=== PATIENT | male | born 1970 | race Caucasian/White ===

== ENCOUNTER 2017-08-24 14:49 | Emergency (ER) | payer MEDICAID ==
[~2017-08-24 14:49] MED LIST: CITA20TA11 PO; CLIN-15 PO; CLIN-80 PO; GABA300C PO; IBUP-1985 PO; IND25C PO; QUET-1 PO; TEG100T PO; TRAM50TA2 PO; VITA1CAP62 PO
== END 2017-08-24 16:10 | disposition left against medical advice (07) ==
LOC: ER 14:50
DX: F41.9 Anxiety disorder, unspecified (principal); Z53.21 Procedure and treatment not carried out due to patient leaving prior to being seen by health care provider

== ENCOUNTER 2018-02-27 07:03 | Emergency (ER) | payer MEDICAID ==
[~2018-02-27] VITALS: Ht 175.3 cm; Wt 77.3 kg
[~2018-02-27 07:03] MED LIST changes: +CITA-278 PO; -CITA20TA11 PO; -CLIN-80 PO; +CLIN300C85 PO
[2018-02-27] MEDS ORDERED: normal saline 1000ML IV soln IVB ONE (07:25)
[2018-02-27 08:12] LABS: BASOPHILS # (AUTO) 0.1 X10'3 (0-0.2); BASOPHILS % (AUTO) 0.9 % (0-1); EOSINOPHILS # (AUTO) 0.1 X10'3 (0-0.9); EOSINOPHILS % (AUTO) 1.3 % (0-6); HEMATOCRIT 43.8 % (42.0-52.0); LYMPHOCYTES # (AUTO) 1.3 X10'3 (1.1-4.8); LYMPHOCYTES % (AUTO) 17.7 % (21-51); MEAN CORPUSCULAR HEMOGLOBIN 34.6 PG (27.0-31.0); MEAN CORPUSCULAR HGB CONC 34.2 % (33.0-36.5); MEAN CORPUSCULAR VOLUME 101.2 FL (78-98); MEAN PLATELET VOLUME 8.3 FL (7.4-10.4); MONOCYTES # (AUTO) 0.6 X10'3 (0-0.9); MONOCYTES % (AUTO) 8.1 % (2-12); NEUTROPHILS # (AUTO) 5.3 X10'3 (1.8-7.7); PLATELET COUNT 158 X10'3 (140-440); RED BLOOD COUNT 4.33 X10'6 (4.70-6.10); RED CELL DISTRIBUTION WIDTH 13.8 % (11.5-14.5); WHITE BLOOD COUNT 7.3 X10'3 (4.5-11.0)
[2018-02-27 08:27] LABS: ALANINE AMINOTRANSFERASE 107 U/L (12-78); ALBUMIN 3.9 G/DL (3.4-5.0); ALBUMIN/GLOBULIN RATIO 0.9 (1.1-1.5); ALKALINE PHOSPHATASE 98 IU/L (46-116); ANION GAP 17 (8-16); ASPARTATE AMINO TRANSFERASE 116 U/L (10-37); BILIRUBIN,TOTAL 0.4 MG/DL (0.1-1.0); BLOOD UREA NITROGEN 7 MG/DL (7-18); BUN/CREATININE RATIO 8.6 (5.4-32.0); CALCIUM 8.7 MG/DL (8.5-10.1); CHLORIDE 97 MMOL/L (99-107); CREATININE 0.81 MG/DL (0.60-1.10); GLUCOSE 81 MG/DL (70-104); SODIUM 138 MMOL/L (135-145); TOTAL CARBON DIOXIDE 24.1 MMOL/L (24-32); TOTAL PROTEIN 8.3 G/DL (6.4-8.2); eGFR > 90 ML/MIN
[2018-02-27 08:30] LABS: POTASSIUM 3.8 MMOL/L (3.5-5.1)
[2018-02-27 08:34] LABS: ETHANOL 0.016 GM/DL (0.0-0.010)
[2018-02-27 10:40] LABS: URINE AMPHETAMINE SCREEN NEGATIVE (Neg); URINE BARBITUATE SCREEN NEGATIVE (Neg); URINE BENZODIAZEPINES SCREEN NEGATIVE (Neg); URINE CANNABINOID SCREEN NEGATIVE (Neg); URINE COCAINE SCREEN NEGATIVE (Neg); URINE METHADONE SCREEN NEGATIVE (Neg); URINE OPIATE SCREEN NEGATIVE (Neg); URINE PHENCYCLIDINE SCREEN NEGATIVE (Neg)
[2018-02-27 11:05] VITALS: BP 154/90
== END 2018-02-27 12:30 | disposition home or self-care (01) ==
LOC: ER 07:03
DX: R06.00 Dyspnea, unspecified (principal); G89.29 Other chronic pain; M19.90 Unspecified osteoarthritis, unspecified site; F17.210 Nicotine dependence, cigarettes, uncomplicated; Z86.19 Personal history of other infectious and parasitic diseases; Z86.69 Personal history of other diseases of the nervous system and sense organs; Z88.0 Allergy status to penicillin; Z79.2 Long term (current) use of antibiotics; Z79.899 Other long term (current) drug therapy
CPT/HCPCS: 36415; 71046; 80053; 80305; 80320; 83880; 85025; 93005; 99285

== ENCOUNTER 2018-10-23 14:09 | Emergency (ER) | payer MEDICAID ==
[~2018-10-23] VITALS: Ht 175.3 cm; Wt 87.0 kg
[~2018-10-23 14:09] MED LIST changes: -CITA-278 PO; +CITA20TA28 PO; +CLIN-96 PO; -CLIN300C85 PO; +IVER3TAB2 PO
[2018-10-23 15:04] LABS: BASOPHILS # (AUTO) 0.1 X10'3 (0-0.2); BASOPHILS % (AUTO) 1.4 % (0-1); EOSINOPHILS # (AUTO) 0.1 X10'3 (0-0.9); EOSINOPHILS % (AUTO) 1.5 % (0-6); HEMATOCRIT 43.7 % (42.0-52.0); HEMOGLOBIN 14.8 g/dl (14.0-17.9); LYMPHOCYTES # (AUTO) 2.1 X10'3 (1.1-4.8); LYMPHOCYTES % (AUTO) 37.9 % (21-51); MEAN CORPUSCULAR HEMOGLOBIN 34.6 PG (27.0-31.0); MEAN CORPUSCULAR VOLUME 101.8 FL (78-98); MEAN PLATELET VOLUME 9.1 FL (7.4-10.4); MONOCYTES # (AUTO) 0.8 X10'3 (0-0.9); MONOCYTES % (AUTO) 14.1 % (2-12); NEUTROPHILS # (AUTO) 2.5 X10'3 (1.8-7.7); NEUTROPHILS % (AUTO) 45.1 % (42-75); PLATELET COUNT 118 X10'3 (140-440); RED BLOOD COUNT 4.29 X10'6 (4.70-6.10); RED CELL DISTRIBUTION WIDTH 13.2 % (11.5-14.5); WHITE BLOOD COUNT 5.6 X10'3 (4.5-11.0)
[2018-10-23 15:19] LABS: PARTIAL THROMBOPLASTIN TIME 27 SECONDS (22-32)
[2018-10-23 15:22] LABS: ALANINE AMINOTRANSFERASE 170 U/L (12-78); ALBUMIN/GLOBULIN RATIO 0.9 (1.1-1.5); ALKALINE PHOSPHATASE 82 IU/L (46-116); ANION GAP 10 (8-16); ASPARTATE AMINO TRANSFERASE 169 U/L (10-37); BILIRUBIN,TOTAL 0.4 MG/DL (0.1-1.0); BLOOD UREA NITROGEN 5 MG/DL (7-18); BUN/CREATININE RATIO 5.4 (5.4-32.0); CALCIUM 8.8 MG/DL (8.5-10.1); CHLORIDE 97 MMOL/L (99-107); CREATININE 0.93 MG/DL (0.60-1.10); GLUCOSE 131 MG/DL (70-104); SODIUM 132 MMOL/L (135-145); TOTAL CARBON DIOXIDE 25.4 MMOL/L (24-32); TOTAL PROTEIN 8.6 G/DL (6.4-8.2); eGFR 87 ML/MIN
[2018-10-23] MEDS ORDERED: ALBU8.5H8 IH (15:58)
[2018-10-23 16:33] VITALS: BP 113/66
== END 2018-10-23 16:35 | disposition home or self-care (01) ==
LOC: ER 14:09
DX: J40 Bronchitis, not specified as acute or chronic (principal); F10.20 Alcohol dependence, uncomplicated; G89.29 Other chronic pain; Z56.0 Unemployment, unspecified; Z86.69 Personal history of other diseases of the nervous system and sense organs; Z86.19 Personal history of other infectious and parasitic diseases; Z88.0 Allergy status to penicillin; Z79.2 Long term (current) use of antibiotics; Z79.899 Other long term (current) drug therapy
CPT/HCPCS: 36415; 71046; 80053; 84484; 85025; 85610; 85730; 93005; 99284

== ENCOUNTER 2023-12-16 07:14 | Emergency (ER) | payer MEDICAID ==
[~2023-12-16] VITALS: Ht 175.3 cm; Wt 66.8 kg
[~2023-12-16 07:14] MED LIST changes: +ALBU8.5H17 IH; -CLIN-96 PO; +CLIN-97 PO; +FLO0.4C PO; +HYDR-3965 PO
[2023-12-16 08:15] LABS: BASOPHILS # (AUTO) 0.1 X10'3 (0-0.2); BASOPHILS % (AUTO) 0.7 % (0-1); EOSINOPHILS # (AUTO) 0.2 X10'3 (0-0.9); EOSINOPHILS % (AUTO) 2.9 % (0-6); HEMATOCRIT 40.8 % (42.0-52.0); HEMOGLOBIN 13.9 g/dl (14.0-17.9); MEAN CORPUSCULAR HEMOGLOBIN 33.9 PG (27.0-31.0); MEAN CORPUSCULAR HGB CONC 34.1 g/dL (33.0-36.5); MEAN CORPUSCULAR VOLUME 99.5 FL (78-98); MEAN PLATELET VOLUME 7.6 FL (7.4-10.4); MONOCYTES # (AUTO) 0.9 X10'3 (0-0.9); MONOCYTES % (AUTO) 10.2 % (2-12); NEUTROPHILS # (AUTO) 5.2 X10'3 (1.8-7.7); NEUTROPHILS % (AUTO) 62.2 % (42-75); PLATELET COUNT 304 X10'3 (140-440); RED CELL DISTRIBUTION WIDTH 12.8 % (11.5-14.5); WHITE BLOOD COUNT 8.4 X10'3 (4.5-11.0)
[2023-12-16 08:21] LABS: BILIRUBIN,URINE SMALL (Neg); CLARITY,URINE CLEAR (Clear); COLOR,URINE YELLOW (Yellow); GLUCOSE, URINE NEGATIVE (Neg); KETONES,URINE NEGATIVE (Neg); LEUKOCYTE ESTERASE ,URINE NEGATIVE (Neg); NITRITES, URINE NEGATIVE (Neg); OCCULT BLOOD,URINE TRACE-INTACT (Neg); PH,URINE 5.5 (4.8-8.0); PROTEIN,URINE TRACE mg/dl (Neg); UROBILINOGEN,URINE 0.2 E.U/dL (0.2-1.0)
[2023-12-16 08:22] LABS: UA COLLECTION TYPE VOIDED
[2023-12-16 08:26] LABS: ALANINE AMINOTRANSFERASE 35 U/L (12-78); ALBUMIN 3.4 G/DL (3.4-5.0); ALBUMIN/GLOBULIN RATIO 0.8 (1.1-1.5); ALKALINE PHOSPHATASE 126 IU/L (46-116); AMYLASE 31 U/L (25-115); ANION GAP 7 (8-16); ASPARTATE AMINO TRANSFERASE 25 U/L (10-37); BILIRUBIN,TOTAL 0.4 MG/DL (0.1-1.0); BLOOD UREA NITROGEN 17 MG/DL (7-18); BUN/CREATININE RATIO 18.3 (10.0-20.0); CALCIUM 8.7 MG/DL (8.5-10.1); CHLORIDE 99 MMOL/L (99-107); CREATININE 0.93 MG/DL (0.60-1.10); GLUCOSE 88 MG/DL (70-104); LIPASE 20 U/L (16-77); POTASSIUM 3.5 MMOL/L (3.5-5.1); SODIUM 135 MMOL/L (135-145); TOTAL PROTEIN 7.9 G/DL (6.4-8.2); eCRCL 88 ML/MIN; eGFR 85 ML/MIN
[2023-12-16 08:29] LABS: FINE GRANULAR CAST 0-3 /LPF (NEGATIVE); HYALINE CASTS 0-3 /LPF (NEGATIVE); MUCUS STRANDS FEW /LPF (Neg); SQUAMOUS EPITHELIAL CELL,UR MANY /LPF (FEW)
[2023-12-16 08:34] LABS: BACTERIA,URINE FEW /HPF (Neg)
[2023-12-16 08:39] LABS: WBC CLUMPS,URINE FEW /HPF (NEGATIVE); WBC,URINE 50-100 /HPF (0-4)
[2023-12-16] MEDS: CefTRIAXone 2gm/D5W 50ml BAG 50 ML IV ONE (09:28)
[2023-12-16] MEDS ORDERED: CIPR250T4 PO (10:17)
[2023-12-16 11:42] VITALS: BP 129/85; PULSE 79; RESP 14; TEMP 98.2; O2SAT 97
== END 2023-12-16 11:44 | disposition home or self-care (01) ==
LOC: ER 07:15
DX: N39.0 Urinary tract infection, site not specified (principal); M19.90 Unspecified osteoarthritis, unspecified site; G89.29 Other chronic pain; F41.9 Anxiety disorder, unspecified; F32.A Depression, unspecified; F10.90 Alcohol use, unspecified, uncomplicated; Z56.0 Unemployment, unspecified; Z87.442 Personal history of urinary calculi; Z88.0 Allergy status to penicillin; Z79.899 Other long term (current) drug therapy; Z79.2 Long term (current) use of antibiotics; Z79.1 Long term (current) use of non-steroidal anti-inflammatories (NSAID)
CPT/HCPCS: 36415; 76770; 80053; 81001; 82150; 83690; 85025; 96365; 99285; J0696

== ENCOUNTER 2024-05-09 00:04 | Emergency (ER) | payer MEDICAID ==
[~2024-05-09] VITALS: Ht 175.3 cm; Wt 69.4 kg
[~2024-05-09 00:04] MED LIST changes: -FLO0.4C PO; -HYDR-3965 PO
[2024-05-09 00:12] VITALS: BP 106/69; PULSE 82; RESP 17; O2SAT 96
== END 2024-05-09 02:09 | disposition left against medical advice (07) ==
LOC: ER 00:06
DX: R06.02 Shortness of breath (principal); R05.9 Cough, unspecified; Z53.21 Procedure and treatment not carried out due to patient leaving prior to being seen by health care provider; Z88.0 Allergy status to penicillin

== ENCOUNTER 2024-09-24 07:39 | Emergency (ER) | payer MEDICAID ==
[~2024-09-24] VITALS: Ht 170.2 cm; Wt 65.0 kg
[~2024-09-24 07:39] MED LIST changes: +CITA-178 PO; -CITA20TA28 PO
[2024-09-24 07:57] VITALS: BP 145/95; PULSE 84; RESP 12; O2SAT 95
--- NOTE | 2024-09-24 09:48 | Physician Documentation ---
History of Present Illness ~ General Chief Complaint: See Chief Complaint Stated Complaint: TRACHEA ISSUES Time Seen by MD: 08:44 Primary Medical Doctor: Kassidy Vaughn Mode of Arrival: EMS History of Present Illness Initial Comments 54-year-old male history of laryngeal cancer status post laryngectomy and tracheostomy presenting for removal of his tracheostomy device. He was seen at [facility] where he had uncuffed 7.5 tracheostomy device placed without internal cannula. He had chest x-ray performed which showed no acute cardiopulmonary abnormality. COVID influenza negative Medication Reconciliation Allergies: Coded Allergies: Penicillins (Verified Allergy, Intermediate, 05/09/24) Scheduled Carbamazepine* (Tegretol*), 100 MG PO BID, (Reported) Citalopram Hydrobromide* (Celexa*), 20 MG PO DAILY, (Reported) Clindamycin HCL* (Clindamycin HCL*), 1 CAP PO Q6H Clindamycin HCl (Clindamycin HCl), 150 MG PO QID, (Reported) Gabapentin (Neurontin), 300 MG PO BID, (Reported) Ibuprofen (Ibuprofen), 1 TAB PO Q8H Indomethacin* (Indocin*), 25 MG PO Q6H, (Reported) Ivermectin (Ivermectin), 6 TAB PO ONCE Quetiapine Fumarate* (Seroquel*), 400 MG PO HS, (Reported) Vitamin B Complex (Vitamin B Complex), 2 EACH PO DAILY, (Reported) Scheduled PRN Albuterol Sulfate (Proair Hfa), 2 PUFFS IH Q4H PRN for SOB or wheezing Tramadol HCl (Tramadol HCl), 50 MG PO Q6H PRN for pain, (Reported) Past Medical History Past Medical History: Seizures, Hepatitis C, Arthritis, Chronic Pain, Anxiety, Depression Past Surgical History: no surgical history Smoking Status: Current every day smoker Alcohol Use: Alcoholic Drug Use: none Lives with: Spouse Lives In: Home Occupation: unemployed Physical Exam Physical Exam Vital Signs: Heart Rate: 84, Respiratory Rate: 12, BP: 145/95, Pulse Oximetry: 95, Weight: 65.000 Oxygen Flow Rate: 0 Physical Exam Resting comfortably in bed HEENT intact tracheostomy appliance No respiratory distress Clear to auscultation bilateral Progress Progress Note 11:30 a.m. discussed case with Dr. Montero who evaluated the patient at the bedside. He recommended RT replacement of inner cannula Twelve 30 RT unable to replace in her catheter. Dr. Mcmullen consulted he recommends transfer to [facility] 1:58 p.m. the patient would like to leave against medical advice does not want to go [facility] and does not want to be admitted this hospice Results/Orders Reviewed/noted all lab results: Yes Results/Orders Orders - RICARDA SAINI MD Page Hospitalist (09/24/24 09:48) Fill Out Med Reconciliation (09/24/24 09:48) Electrocardiogram (09/24/24 11:13) Rt Assessment/Protocol/Eval/Tx (09/24/24 12:20) Completed Orders - RICARDA SAINI MD Cbc/Diff (09/24/24 09:18) BMP (09/24/24 09:18) * Rt Notification Q1H (09/24/24 12:20) Troponin (Single) (09/24/24 12:21) Vital Signs 09/24/24 09/24/24 09/24/24 07:41 07:57 08:02 Pulse 80 84 Resp 16 12 B/P (MAP) 142/80 145/95 (112) Pulse Ox 97 95 O2 Flow Rate 2.0 0 Laboratory Tests Test 09/24/24 09:56 09/24/24 12:51 White Blood Count 7.4 Red Blood Count 4.06 L Hemoglobin 12.9 L Hematocrit 38.4 L Mean Corpuscular Volume 94.4 Mean Corpuscular Hemoglobin 31.8 H Mean Corpuscular Hemoglobin Concent 33.6 Red Cell Distribution Width 14.4 Platelet Count 257 Mean Platelet Volume 7.8 Neutrophils (%) (Auto) 65.7 Lymphocytes (%) (Auto) 20.0 L Monocytes (%) (Auto) 11.0 Eosinophils (%) (Auto) 2.5 Basophils (%) (Auto) 0.8 Neutrophils # (Auto) 4.9 Lymphocytes # (Auto) 1.5 Monocytes # (Auto) 0.8 Eosinophils # (Auto) 0.2 Basophils # (Auto) 0.1 CBC Comment Sodium Level 138 Potassium Level 4.0 Chloride Level 102 Carbon Dioxide Level 26.2 Anion Gap 10 Blood Urea Nitrogen 17 Creatinine 0.74 Estimated GFR/1.73 m2 > 90 BUN/Creatinine Ratio 23.0 H Glucose Level 80 Calcium Level 9.2 Albumin 3.5 Chemistry Comments Troponin I High Sensitivity 8 Re-Evaluation Re-Evaluation : Progress Labs independently interpreted shows no acute abnormality EKG/XRAY/CT/US/VASC/MRI EKG : Additional Comment EKG independently interpreted by myself time 10:57 a.m. indication symptomatic patient normal sinus rhythm rate 62 normal axis short NM no ST elevation Medical Decision Making Additional info obtained from: old records Differential Diagnosis Tracheostomy complication, dislodged tracheostomy tube, pneumonia respiratory distress Departure Disposition: LEFT AGAINST MEDICAL ADVICE Impression: Primary Impression: Tracheostomy complication Qualified Codes: J95.00 - Unspecified tracheostomy complication Additional Instructions: Please follow up with your ENT at [facility]. This tube in place is not sufficient for any prolonged period of time. It should be replaced as soon as possible. If you have any difficulty breathing please return to the emergency department Referrals: NO PRIMARY CARE PROVIDER (PCP) Signature Scribe Signature: na Attestation: RICARDA Greene MD September 24, 2024 09:47
[2024-09-24 10:28] LABS: BASOPHILS # (AUTO) 0.1 X10'3 (0-0.2); BASOPHILS % (AUTO) 0.8 % (0-1); EOSINOPHILS # (AUTO) 0.2 X10'3 (0-0.9); EOSINOPHILS % (AUTO) 2.5 % (0-6); HEMATOCRIT 38.4 % (42.0-52.0); HEMOGLOBIN 12.9 g/dl (14.0-17.9); LYMPHOCYTES # (AUTO) 1.5 X10'3 (1.1-4.8); MEAN CORPUSCULAR HEMOGLOBIN 31.8 PG (27.0-31.0); MEAN CORPUSCULAR HGB CONC 33.6 g/dL (33.0-36.5); MEAN CORPUSCULAR VOLUME 94.4 FL (78-98); MEAN PLATELET VOLUME 7.8 FL (7.4-10.4); MONOCYTES # (AUTO) 0.8 X10'3 (0-0.9); NEUTROPHILS # (AUTO) 4.9 X10'3 (1.8-7.7); NEUTROPHILS % (AUTO) 65.7 % (42-75); PLATELET COUNT 257 X10'3 (140-440); RED BLOOD COUNT 4.06 X10'6 (4.70-6.10); RED CELL DISTRIBUTION WIDTH 14.4 % (11.5-14.5); WHITE BLOOD COUNT 7.4 X10'3 (4.5-11.0)
[2024-09-24 10:32] LABS: ALBUMIN 3.5 G/DL (3.4-5.0); ANION GAP 10 (8-16); BLOOD UREA NITROGEN 17 MG/DL (7-18); CALCIUM 9.2 MG/DL (8.5-10.1); CHLORIDE 102 MMOL/L (99-107); CREATININE 0.74 MG/DL (0.60-1.10); GLUCOSE 80 MG/DL (70-104); SODIUM 138 MMOL/L (135-145); TOTAL CARBON DIOXIDE 26.2 MMOL/L (24-32); eCRCL 106 ML/MIN; eGFR > 90 ML/MIN
--- NOTE | 2024-09-24 15:24 | ELECTROCARDIOGRAPH REPORT ---
[facility] Test Date: 2024-09-24 Test Time: 10:57:09 Pat Name: LISA TRUJILLO Department: EMERGENCY ROOM Patient ID: [facility]-[id number] Room: Gender: M Operations Technician: : 1970 Requested By: RICARDA SAINI Order Number: [id number] Reading MD: Dr. Bruce Edwards Measurements Intervals [place] Rate: 62 P: 63 NJ: 102 QRS: 68 QRSD: 96 T: 76 QT: 426 QTc: 433 Interpretive Statements Sinus rhythm Short [place] interval Electronically Signed On 09-28-2024 21:46:[address] Bruce Edwards Please click the below link to view image of tracing.
== END 2024-09-24 13:51 | disposition left against medical advice (07) ==
LOC: ER 07:40
DX: J95.00 Unspecified tracheostomy complication (principal); F17.200 Nicotine dependence, unspecified, uncomplicated; M19.90 Unspecified osteoarthritis, unspecified site; F41.9 Anxiety disorder, unspecified; F32.A Depression, unspecified; F10.90 Alcohol use, unspecified, uncomplicated; I49.8 Other specified cardiac arrhythmias; Z85.21 Personal history of malignant neoplasm of larynx; Z88.0 Allergy status to penicillin; Z79.899 Other long term (current) drug therapy; Z56.0 Unemployment, unspecified; Y90.9 Presence of alcohol in blood, level not specified
CPT/HCPCS: 36415; 80048; 84484; 85025; 93005; 99283; 99284; A4624

== ENCOUNTER 2024-09-30 21:36 | Emergency (ER) | payer MEDICAID ==
[~2024-09-30] VITALS: Ht 170.2 cm; Wt 63.6 kg
[2024-09-30 21:46] VITALS: TEMP 98.4
[2024-09-30] MEDS: LIDOcaine 2% Viscous 15ml cup TP PRN (22:25)
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
[2024-09-30 22:43] VITALS: BP 153/90; PULSE 85; RESP 15; O2SAT 97
== END 2024-09-30 22:44 ==
LOC: ER 21:37
DX: T65.891A Toxic effect of other specified substances, accidental (unintentional), initial encounter (principal); M19.90 Unspecified osteoarthritis, unspecified site; F41.9 Anxiety disorder, unspecified; F32.A Depression, unspecified; F10.90 Alcohol use, unspecified, uncomplicated; Z88.0 Allergy status to penicillin; Z79.899 Other long term (current) drug therapy; Z56.0 Unemployment, unspecified; Y90.9 Presence of alcohol in blood, level not specified; Y92.89 Other specified places as the place of occurrence of the external cause
CPT/HCPCS: 99283

== ENCOUNTER 2024-11-05 00:56 | Emergency (ER) | payer MEDICAID ==
[~2024-11-05] VITALS: Ht 175.3 cm; Wt 77.3 kg
[2024-11-05 01:31] LABS: BASOPHILS # (AUTO) 0.1 X10'3 (0-0.2); EOSINOPHILS # (AUTO) 0.3 X10'3 (0-0.9); EOSINOPHILS % (AUTO) 3.1 % (0-6); HEMATOCRIT 37.7 % (42.0-52.0); LYMPHOCYTES # (AUTO) 2.5 X10'3 (1.1-4.8); LYMPHOCYTES % (AUTO) 25.9 % (21-51); MEAN CORPUSCULAR HEMOGLOBIN 33.6 PG (27.0-31.0); MEAN CORPUSCULAR HGB CONC 34.4 g/dL (33.0-36.5); MEAN CORPUSCULAR VOLUME 97.5 FL (78-98); MEAN PLATELET VOLUME 7.1 FL (7.4-10.4); MONOCYTES # (AUTO) 0.8 X10'3 (0-0.9); MONOCYTES % (AUTO) 8.4 % (2-12); NEUTROPHILS # (AUTO) 5.9 X10'3 (1.8-7.7); NEUTROPHILS % (AUTO) 61.6 % (42-75); PLATELET COUNT 361 X10'3 (140-440); RED BLOOD COUNT 3.87 X10'6 (4.70-6.10); WHITE BLOOD COUNT 9.6 X10'3 (4.5-11.0)
[2024-11-05 01:39] LABS: ALBUMIN 3.8 G/DL (3.4-5.0); ANION GAP 12 (8-16); BLOOD UREA NITROGEN 12 MG/DL (7-18); BUN/CREATININE RATIO 11.8 (10.0-20.0); CALCIUM 8.4 MG/DL (8.5-10.1); CHLORIDE 103 MMOL/L (99-107); CREATININE 1.02 MG/DL (0.60-1.10); GLUCOSE 87 MG/DL (70-104); POTASSIUM 3.8 MMOL/L (3.5-5.1); SODIUM 137 MMOL/L (135-145); TOTAL CARBON DIOXIDE 21.7 MMOL/L (24-32); eCRCL 84 ML/MIN; eGFR 76 ML/MIN
[2024-11-05] MEDS ORDERED: iohexol 350MG/ML 100ml bottle IV ONE (01:40)
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
[2024-11-05 02:28] LABS: MAGNESIUM 2.1 MG/DL (1.5-2.4)
--- NOTE | 2024-11-05 02:35 | RADIOLOGY REPORT ---
CHEST RADIOGRAPH Indication: COUGH Technique: Single frontal view of the chest was obtained COMPARISON: None FINDINGS: Lines and Tubes: None Lungs: Clear Pleura: No effusion. No pneumothorax. Cardiomediastinal contours: Unremarkable Bones: Unremarkable IMPRESSION: 1. No acute disease.
--- NOTE | 2024-11-05 02:41 | RADIOLOGY REPORT ---
CLINICAL INDICATION: FALL TECHNIQUE: DI KNEE, COMP 4 VW MIN Comparison: None FINDINGS/IMPRESSION: : Small cortical fragment posteriorly adjacent to the fibular head and minimal cortical irregularity of the posterior margin may represent fracture. Otherwise, no evidence of acute fracture or dislocation . Small joint effusion. Soft tissues are otherwise unremarkable.
[2024-11-05 02:45] LABS: ETHANOL 317 MG/DL (<10)
--- NOTE | 2024-11-05 03:03 | RADIOLOGY REPORT ---
INDICATION: STRANGULATION COMPARISON: None TECHNIQUE: CTA head without and with intravenous contrast. CTA neck with intravenous contrast. 3D image postprocessing was performed on a dedicated workstation and images were used for interpretation and reporting. Radiation Dose Information: CT Dose: CTDI volume is 27.2 mGy. Dose-length product is 572.05 mGy*cm FINDINGS: CT head: There is no evidence of acute intracranial hemorrhage, extra-axial collection, mass effect, midline s hift, herniation or hydrocephalus. The ventricles, sulci and cisterns are age appropriate. The doshi -white differentiation is intact. The visualized paranasal sinuses and mastoid air cells are clear. The surrounding soft tissues and osseous structures are unremarkable. CTA head: There is normal enhancement of the visualized distal internal carotid, anterior and middle cerebral a rteries. There is a normal anterior communicating artery complex. There are bilateral posterior com municating arteries. The vertebral, basilar, cerebellar and posterior cerebral arteries are within n ormal limits. Minimal atherosclerotic vascular calcifications within the cavernous portions of the bi lateral internal carotid arteries and distal right vertebral artery without resultant hemodynamically significant stenosis. The early parenchymal enhancement is grossly unremarkable. The visualized in tracranial venous structures are grossly unremarkable. CTA neck: The visualized thoracic aortic arch and proximal great vessels are unremarkable with minimal atherosc lerotic vascular calcifications noted. The left common, internal and external carotid arteries are within normal limits. The right common, internal and external carotid arteries are within normal limits. Atherosclerotic va scular calcifications present within the carotid bulb without resultant hemodynamically significant s tenosis. The cervical segments of the right and left vertebral arteries are within normal limits. The limited visualized lung apices are clear. The surrounding soft tissues and osseous structures ar e otherwise unremarkable. Tracheostomy and small amount of debris within the tracheal airway. IMPRESSION: 1. No evidence of acute intracranial hemorrhage, mass effect or hydrocephalus. 2. No evidence of hemodynamically significant intracranial stenosis, proximal occlusion or aneurysm. 3. No evidence of hemodynamically significant cervical stenosis or dissection. 4. Multifocal atherosclerotic vascular calcification without evidence of resultant hemodynamically si gnificant stenosis. 5. Tracheostomy and small amount of debris within the tracheal airway. All CT scans at this medical facility are performed using dose modulation techniques as appropriate t o a performed exam including the following: Automated exposure control was utilized; adjustment of th e MA and/or KV according to patient size; and use of iterative reconstruction technique.
[2024-11-05] MEDS: LIDOcaine/epinephrine/tetracaine TOPICAL sol 3 ML syringe TOP ONE (03:25)
[2024-11-05] MEDS: LIDOcaine 1% 30ml preserv. free vial SQ STA (05:41)
[2024-11-05 08:54] LABS: URINE AMPHETAMINE SCREEN NEGATIVE (Neg); URINE BARBITUATE SCREEN NEGATIVE (Neg); URINE BENZODIAZEPINES SCREEN NEGATIVE (Neg); URINE CANNABINOID SCREEN NEGATIVE (Neg); URINE COCAINE SCREEN NEGATIVE (Neg); URINE METHADONE SCREEN NEGATIVE (Neg); URINE OPIATE SCREEN NEGATIVE (Neg); URINE PHENCYCLIDINE SCREEN NEGATIVE (Neg)
[2024-11-05 09:11] VITALS: BP 122/81; PULSE 87; RESP 17; TEMP 98; O2SAT 95
== END 2024-11-05 09:16 | disposition home or self-care (01) ==
LOC: ER 00:57
DX: S01.312A Laceration without foreign body of left ear, initial encounter (principal); F10.129 Alcohol abuse with intoxication, unspecified; M19.90 Unspecified osteoarthritis, unspecified site; R06.02 Shortness of breath; Z88.0 Allergy status to penicillin; Z88.8 Allergy status to other drugs, medicaments and biological substances; Z79.899 Other long term (current) drug therapy; X58.XXXA Exposure to other specified factors, initial encounter; Y93.89 Activity, other specified; Y92.89 Other specified places as the place of occurrence of the external cause; Y99.8 Other external cause status; Y90.9 Presence of alcohol in blood, level not specified
CPT/HCPCS: 36415; 70496; 70498; 71045; 73564; 80048; 80305; 80320; 83735; 85025; 99285; J3490; Q9967; A7526

== ENCOUNTER 2025-02-20 00:31 | Emergency (ER) | payer MEDICAID ==
[~2025-02-20] VITALS: Ht 167.6 cm; Wt 74.0 kg
[~2025-02-20 00:31] MED LIST changes: +CLIN-224 PO; -CLIN-97 PO; -IBUP-1985 PO; +IBUP600T52 PO
[2025-02-20 00:34] VITALS: BP 132/78; PULSE 94; RESP 18; TEMP 97.6; O2SAT 94
--- NOTE | 2025-02-20 00:48 | Physician Documentation ---
History of Present Illness ~ General Chief Complaint: General Stated Complaint: TRACH ISSUES Time Seen by MD: 00:42 Primary Medical Doctor: Kassidy Vaughn History of Present Illness Initial Comments This is a 54-year-old male with a history of laryngeal cancer, status post tracheostomy, presents for evaluation of shortness a breath and productive cough. Has been present for several days. He is followed by [facility]. No chest pain. Does report subjective fever and chills. Medication Reconciliation Allergies: Coded Allergies: Penicillins (Verified Allergy, Intermediate, 05/09/24) Scheduled Carbamazepine* (Tegretol*), 100 MG PO BID, (Reported) Citalopram Hydrobromide* (Celexa*), 20 MG PO DAILY, (Reported) Clindamycin HCL* (Clindamycin HCL*), 1 CAP PO Q6H Clindamycin HCl (Clindamycin HCl), 150 MG PO QID, (Reported) Gabapentin (Neurontin), 300 MG PO BID, (Reported) Ibuprofen (Ibuprofen), 1 TAB PO Q8H Indomethacin* (Indocin*), 25 MG PO Q6H, (Reported) Ivermectin (Ivermectin), 6 TAB PO ONCE Quetiapine Fumarate* (Seroquel*), 400 MG PO HS, (Reported) Vitamin B Complex (Vitamin B Complex), 2 EACH PO DAILY, (Reported) Scheduled PRN Albuterol Sulfate (Proair Hfa), 2 PUFFS IH Q4H PRN for SOB or wheezing Tramadol HCl (Tramadol HCl), 50 MG PO Q6H PRN for pain, (Reported) Past Medical History Past Medical History: Seizures, Hepatitis C, Arthritis, Chronic Pain, Anxiety, Depression Past Surgical History: no surgical history Alcohol Use: Alcoholic Drug Use: none Lives with: Spouse Lives In: Home Occupation: unemployed Review of Systems ROS 10 point review of systems was performed and unless noted above in HPI is negative for acute process/complaint. Physical Exam Physical Exam Vital Signs: Temperature: 97.6, Source: Temporal, Heart Rate: 94, Respiratory Rate: 18, BP: 132/78, Pulse Oximetry: 94, Weight: 74.000 Oxygen Flow Rate: 0 Physical Exam GENERAL: Awake, alert, oriented, GCS 15, no apparent distress, non-toxic appearing, answers questions, follows commands appropriately. HEENT: Atraumatic, normocephalic, pupils equal, extraocular muscles intact, sclerae anicteric, mucus membranes moist, oropharynx is clear, no stridor. Tracheostomy present. There is no discharge. No surrounding erythema. NECK: supple, full active range of motion, trachea midline, no thyromegaly, no lymphadenopathy, no JVD. CARDIOVASCULAR: regular rate/rhythm, no murmurs/gallops/rubs, Pulses are 2+ in all extremities and symmetric. Capillary refill less than 2 seconds. PULMONARY: Nonlabored, good air movement ,no respiratory distress, speaking in full sentences, coarse breath sounds bilaterally, no wheezing, no ronchi, no rales, no accessory muscle use. GASTROINTESTINAL: Soft, non-tender, non-distended, normal active bowel sounds, no organomegaly, no pulsatile masses, no CVA tenderness. NEUROLOGIC: Lucid with normal mental status. Normal facial symmetry. Moves all extremities symmetrically and with purpose. No truncal ataxia. Speech is fluid without evidence of dysarthria or aphasia, no focal deficits appreciated. MUSCULOSKELETAL: There is full range of motion of all extremities. There is no joint pain or joint swelling or joint erythema. There is no muscle pain or tenderness or swelling. EXTREMITIES: warm, well-perfused, no cyanosis, no clubbing, no edema, no acute deformities. Skin: warm, dry, no rashes or lesions, no jaundice, no petechiae orpurpura. No ecchymosis. PSYCHIATRIC: Normal affect, normal insight, normal concentration. Focused exam: [] Progress Results/Orders Results/Orders Orders - GREY MOREJON DO Cbc/Diff (02/20/25:44) ESR (02/20/25:44) C-Reactive Protein (02/20/25:44) Chest,Two Views (02/20/25:44) Culture Blood (02/20/25:44) PBNP (02/20/25:44) MG (02/20/25:44) CMP (02/20/25:44) Hs Troponin I W Calculations (02/20/25:44) Hs Troponin I W Calculations (02/20/25 02:44) Lacticsepsis (02/20/25:44) Completed Orders - GREY MOREJON DO Electrocardiogram (10/13/25 00:44) Chest,Two Views (02/20/25 00:44) Vital Signs 02/20/25 00:34 Temp 97.6 Pulse 94 Resp 18 B/P (MAP) 132/78 Pulse Ox 94 O2 Flow Rate 0 EKG/XRAY/CT/US/VASC/MRI EKG : Additional Comment EKG was obtained and interpreted by myself shows sinus rhythm of 92, normal MN interval, narrow QRS, no QT prolongation, normal axis, no STEMI. Medical Decision Making Findings Facility Status: ED Holds, [facility] process The plan was discussed with the patient, who demonstrates clear understanding of the plan and is in agreement with the plan unless otherwise noted in the chart. All questions have been answered, all concerns were addressed unless otherwise documented. I was available throughout their ED stay for frequent reassessment and questions. Differential Diagnoses (considered and possible or likely): [COVID, influenza, RSV, upper respiratory infection with the top of the viruses, bacterial pneumonia, less likely CHF or ACS. Clinically no evidence of tracheostomy obstruction.] ??Differential Diagnoses (considered and unlikely, not requiring evaluation currently): [See above] MDM Data Please see [facility] for the following: Independent Historians and external Records Review. Historian: [Patient] Independent Historians: ?[Record review] Medication Management: [Reviewed medication list] Social History and determinants: [Reviewed] Please see the body of the note for the following: Any independent interpretations of ECG, imaging studies. All vitals signs/haemodynamics, ordered tests were independently reviewed and interpreted by myself. Nursing triage complaint and vitals reviewed, additional nursing notes were reviewed as available and I agree unless otherwise noted or documented in contradiction in the chart Vital Signs: Independently reviewed Labs: Independently interpreted Imaging: Independently interpreted Old Medical Records: Independently reviewed, see HPI for relevant summary and information Pulse Oximetry: [94%] interpreted as [normal on room air] by me [Soda Maker: [Regular Rate, Regular rhythm, no ectopy, NSR] reviewed and interpreted by me] Additionally notably showing: [Hemodynamically stable] Tests considered but not ordered include: [Labs were ordered, however the patient refused and left.] Social Determinants of Health Impact: Patient was evaluated in [facility] [place] to healthcare due to below par ratio of patient to medical providers. [] Comorbid Conditions Impacting Present Evaluation and Care/Treatment: [History of cancer, status post tracheostomy] Management Discussions with other Healthcare Providers: [Not applicable] Treatment and Disposition Medication Management (Given or considered): []. See EMR for details Consideration for Hospitalization/Escalation/Deescalation of Care: Admission for observation has been considered, [however the patient is able to tolerate p.o., their symptoms are controlled, they are able to rely on oral medications, and their chief complaint/diagnosis can be managed on outpatient basis.] ?ED Course:?[Date: Feb 20, 2025 Time: 01:27 the patient declined lab draw and decided to leave. He has decision-making capacity, he does not require recall. ] ?Shared decision making:?[] Code status:?FULL Please see the full Electronic Medical Record for full details of nursing documentation, medications list, other records of complete past medical history and conditions, vital signs, laboratory studies, and any radiologic study interpretations by radiologists. Portions of this note were completed using [employer] dictation software and as a result there may exist minor errors in spelling. I have reviewed elements of past family and social history and agree as included in note. Departure Disposition: 07 LEFT AWOL/ELOPED Impression: Primary Impression: Shortness of breath Additional Impressions: Cough Tracheostomy in place Referrals: NO PRIMARY CARE PROVIDER (PCP) Signature Scribe Signature: No scribe Attestation: Date: Feb 20, 2025 Time: 00:48 This note accurately reflects clinical decisions, work performed by myself, Grey Morejon, GREY MICHAEL DO Feb 20, 2025 00:48
--- NOTE | 2025-02-20 00:58 | ELECTROCARDIOGRAPH REPORT ---
[facility] Test Date: 2025-02-20 Test Time: 00:56:55 Pat Name: LISA TRUJILLO Department: [facility]- Patient ID: [id number] Room: Gender: M [employer] Manager: : 1970 Requested By: RICARDA MOREJON Order Number: [id number] Reading MD: Measurements Intervals [place] Rate: 92 P: 76 DE: 133 QRS: 55 QRSD: 97 T: 80 QT: 366 QTc: 453 Interpretive Statements Sinus rhythm Baseline wander in lead(s) V3 Please click the below link to view image of tracing.
--- NOTE | 2025-02-20 01:08 | RADIOLOGY REPORT ---
CHEST RADIOGRAPH Indication: Cough, shortness a breath Technique: Frontal and lateral view of the chest was obtained Comparison: DI CHEST,SINGLE VIEW on DOS: 11/05/24, DI CHEST,SINGLE VIEW on DOS: 08/17/24 FINDINGS: Lines and Tubes: None Lungs: Clear Pleura: No effusion. No pneumothorax. Cardiomediastinal contours: Unremarkable Bones: Unremarkable IMPRESSION: 1. No evidence of acute disease.
== END 2025-02-20 01:49 | disposition left against medical advice (07) ==
LOC: ER 00:32
DX: R06.02 Shortness of breath (principal); R05.9 Cough, unspecified; G89.29 Other chronic pain; M19.90 Unspecified osteoarthritis, unspecified site; F41.9 Anxiety disorder, unspecified; F32.A Depression, unspecified; F10.90 Alcohol use, unspecified, uncomplicated; Z85.21 Personal history of malignant neoplasm of larynx; Z88.0 Allergy status to penicillin; Z86.19 Personal history of other infectious and parasitic diseases; Z79.899 Other long term (current) drug therapy; Y90.9 Presence of alcohol in blood, level not specified; Z93.0 Tracheostomy status
CPT/HCPCS: 71046; 93005; 99283

== ENCOUNTER 2025-02-20 02:58 | Emergency (ER) | payer MEDICAID ==
[~2025-02-20] VITALS: Ht 167.6 cm; Wt 77.0 kg
[2025-02-20 03:06] VITALS: BP 132/78; PULSE 94; RESP 18; TEMP 97.6; O2SAT 94
--- NOTE | 2025-02-20 03:45 | Physician Documentation ---
History of Present Illness ~ Chief Complaint: Sore Throat Stated Complaint: TRACH ISSUES Time Seen by MD: 03:12 Primary Medical Doctor: Kassidy Nickerson This is a 54-year-old gentleman who I saw not even 2 hours ago, who abscond it, returns today reporting irritation around his tracheostomy site. Has not willing to elaborate on particular details. He complains of shortness a breath. Denies chest pain. Tracheostomy was performed at [facility]. He can not tell me when. Medication Reconciliation Allergies: Coded Allergies: Penicillins (Verified Allergy, Intermediate, 02/20/25) Scheduled Carbamazepine* (Tegretol*), 100 MG PO BID, (Reported) Citalopram Hydrobromide* (Celexa*), 20 MG PO DAILY, (Reported) Clindamycin HCL* (Clindamycin HCL*), 1 CAP PO Q6H Clindamycin HCl (Clindamycin HCl), 150 MG PO QID, (Reported) Gabapentin (Neurontin), 300 MG PO BID, (Reported) Ibuprofen (Ibuprofen), 1 TAB PO Q8H Indomethacin* (Indocin*), 25 MG PO Q6H, (Reported) Ivermectin (Ivermectin), 6 TAB PO ONCE Quetiapine Fumarate* (Seroquel*), 400 MG PO HS, (Reported) Vitamin B Complex (Vitamin B Complex), 2 EACH PO DAILY, (Reported) Scheduled PRN Albuterol Sulfate (Proair Hfa), 2 PUFFS IH Q4H PRN for SOB or wheezing Tramadol HCl (Tramadol HCl), 50 MG PO Q6H PRN for pain, (Reported) Past Medical History Past Medical History: Seizures, Hepatitis C, Arthritis, Chronic Pain, Anxiety, Depression Past Surgical History: no surgical history Alcohol Use: Alcoholic Drug Use: none Lives with: Spouse Lives In: Home Occupation: unemployed Review of Systems ROS 10 point review of systems was performed and unless noted above in HPI is negative for acute process/complaint. Physical Exam Vital Signs: Temperature: 97.6, Source: Temporal, Heart Rate: 94, Respiratory Rate: 18, BP: 132/78, Pulse Oximetry: 94, Weight: 77.000 Physical Exam Physical examination: GENERAL: Awake, alert, oriented, GCS 15, no apparent distress, non-toxic appearing, answers questions, follows commands appropriately. HEENT: Atraumatic, normocephalic, pupils equal, extraocular muscles intact Active gross movements, sclerae anicteric, mucus membranes moist, no stridor. NECK: Midline, no JVD CARDIOVASCULAR: Good skin perfusion without evidence of pallor, mottling. PULMONARY: Nonlabored, symmetric chest rise, no audible wheezing, no accessory muscle use, no respiratory distress, speaking in full sentences. GASTROINTESTINAL: Not distended. NEUROLOGIC: Lucid with normal mental status. Normal facial symmetry. Moves all extremities symmetrically and with purpose. No truncal ataxia. Speech is fluid without evidence of dysarthria or aphasia, no focal deficits appreciated. EXTREMITIES: Acute deformities Skin: warm, dry PSYCHIATRIC: Normal affect, normal insight, normal concentration. Focused exam: [Tracheostomy site is clean, dry, intact, there is no surrounding erythema, no crepitus. It is patent.] Progress Results/Orders Results/Orders Orders - GREY MOREJON DO Cbc/Diff (02/20/25 03:13) ESR (02/20/25 03:13) C-Reactive Protein (02/20/25 03:13) Culture Blood (02/20/25 03:13) MG (02/20/25 03:13) CMP (02/20/25 03:13) Hs Troponin I W Calculations (02/20/25 03:13) Hs Troponin I W Calculations (02/20/25 05:13) Hs Troponin I W Calculations (02/20/25 06:13) Lacticsepsis (02/20/25 03:13) Neck For Soft Tissues (02/20/25 03:13) Vital Signs 02/20/25 03:06 Temp 97.6 Pulse 94 Resp 18 B/P (MAP) 132/78 Pulse Ox 94 Medical Decision Making Findings Facility Status: ED Holds, RME process The plan was discussed with the patient, who demonstrates clear understanding of the plan and is in agreement with the plan unless otherwise noted in the chart. All questions have been answered, all concerns were addressed unless otherwise documented. I was available throughout their ED stay for frequent reassessment and questions. Differential Diagnoses (considered and possible or likely): [COVID, influenza, RSV, upper respiratory infection with the top of the viruses, unlikely to be a tracheitis, unlikely pneumonia given clear chest x-ray from before/previous visit.] ??Differential Diagnoses (considered and unlikely, not requiring evaluation currently): [No evidence of airway obstruction] MDM Data Please see HPI for the following: Independent Historians and external Records Review. Historian: [Patient] Independent Historians: ?[Record review] Medication Management: [Reviewed medication list] Social History and determinants: [Reviewed] Please see the body of the note for the following: Any independent interpretations of ECG, imaging studies. All vitals signs/haemodynamics, ordered tests were independently reviewed and interpreted by myself. Nursing triage complaint and vitals reviewed, additional nursing notes were reviewed as available and I agree unless otherwise noted or documented in contradiction in the chart Vital Signs: Independently reviewed Labs: Independently interpreted Imaging: Independently interpreted Old Medical Records: Independently reviewed, see HPI for relevant summary and information Pulse Oximetry: [98%] interpreted as [normal on room air] by me Additionally notably showing: [Hemodynamically stable] Tests considered but not ordered include: [X-ray to rule out tracheitis as well as labs were ordered, however the patient abscond it] Social Determinants of Health Impact: Patient was evaluated in [facility] [place] with limited access to healthcare due to below par ratio of patient to medical providers. [Poor health literacy] Comorbid Conditions Impacting Present Evaluation and Care/Treatment: [Tra cheostomy] Management Discussions with other Healthcare Providers: [Not applicable] Treatment and Disposition Medication Management (Given or considered): []. See EMR for details Consideration for Hospitalization/Escalation/Deescalation of Care: Admission for observation has been considered, [however the patient is able to tolerate p.o., their symptoms are controlled, they are able to rely on oral medications, and their chief complaint/diagnosis can be managed on outpatient basis.] ?ED Course:?[The patient again absconded.] ?Shared decision making:?[] Code status:?FULL Please see the full Electronic Medical Record for full details of nursing documentation, medications list, other records of complete past medical history and conditions, vital signs, laboratory studies, and any radiologic study interpretations by radiologists. Portions of this note were completed using [employer] dictation software and as a result there may exist minor errors in spelling. I have reviewed elements of past family and social history and agree as included in note. Departure Disposition: 07 LEFT AWOL/ELOPED Impression: Primary Impression: Tracheostomy present Condition: Stable Referrals: NO PRIMARY CARE PROVIDER (PCP) Signature Scribe Signature: No scribe Attestation: Date: Feb 20, 2025 Time: 03:45 This note accurately reflects clinical decisions, work performed by myself, Grey Morejon, GREY MICHAEL DO Feb 20, 2025 03:45
== END 2025-02-20 03:50 | disposition left against medical advice (07) ==
LOC: ER 02:59
DX: Z93.0 Tracheostomy status (principal); F41.9 Anxiety disorder, unspecified; F32.A Depression, unspecified; F10.90 Alcohol use, unspecified, uncomplicated; M19.90 Unspecified osteoarthritis, unspecified site; Z88.8 Allergy status to other drugs, medicaments and biological substances; Z88.0 Allergy status to penicillin; Y90.9 Presence of alcohol in blood, level not specified
CPT/HCPCS: 99282